=== PATIENT | female | born 1965 | race Caucasian/White ===

== ENCOUNTER 2021-01-31 10:35 | Emergency (ER) | payer BC ==
[~2021-01-31] VITALS: Ht 165.1 cm; Wt 104.3 kg
[2021-01-31 10:51] VITALS: BP_SYST 141
--- NOTE | 2021-01-31 11:00 | NUR ---
Patient to ER bed 07 to gown for evaluation. Side rails up.
--- NOTE | 2021-01-31 11:10 | NUR ---
Dr Tang evaluating patient at bedside
[2021-01-31] MEDS ORDERED: KETOROLAC TROMETHAMINE 60 MG/2 ML VIAL IM ONE (11:15)
--- NOTE | 2021-01-31 11:20 | NUR ---
Pt brought by partner, A&Ox4, pt presents to ER with L knee pain/swelling, pedal pulses equal and strong, skin pink and warm, cap refill <3, VSS.
[2021-01-31] MEDS ORDERED: HYDR-3917 PO (12:14)
[2021-01-31 12:37] VITALS: BP_SYST 141
--- NOTE | 2021-01-31 12:40 | NUR ---
Patient given written and verbal discharge instructions and verbalizes understanding. ER MD discussed with patient the results and treatment provided. Patient in stable condition. ID arm band removed. Rx of Hydrocodone given. Patient educated on pain management and to follow up with PMD. Pain Scale 2/10. Opportunity for questions provided and answered. Medication side effect fact sheet provided.
== END 2021-01-31 12:37 | disposition home or self-care (01) ==
LOC: SED 10:35
DX: S83.92XA Sprain of unspecified site of left knee, initial encounter (principal); Z88.0 Allergy status to penicillin; Z88.2 Allergy status to sulfonamides; Z79.899 Other long term (current) drug therapy; X50.9XXA Other and unspecified overexertion or strenuous movements or postures, initial encounter; Y93.89 Activity, other specified; Y92.89 Other specified places as the place of occurrence of the external cause; Y99.8 Other external cause status
CPT/HCPCS: 73564; 96372; 99283; J1885